=== PATIENT | male | born 1980 | race Two or more races ===

== ENCOUNTER 2017-04-03 17:58 | Emergency (ER) | payer OTHER ==
[~2017-04-03] VITALS: Ht 172.7 cm; Wt 95.3 kg
[2017-04-03 19:01] VITALS: BP 145/97
[2017-04-03] MEDS ORDERED: KEPPRA500 M4 ORAL (19:01)
[2017-04-03] MEDS ORDERED: DEPAKOTE ER250 MG ORAL (19:01)
[2017-04-03 19:03] LABS: BASOPHILS % (AUTO) 1.4 % (0.0-2.0); EOSINOPHILS % (AUTO) 3.4 % (0.0-3.0); LYMPHOCYTES % (AUTO) 20.3 % (20.0-45.0); MEAN CORPUSCULAR HEMOGLOBIN 28.6 PG (27.0-31.0); MEAN CORPUSCULAR HGB CONC 31.2 G/DL (32.0-36.0); MEAN CORPUSCULAR VOLUME 92 FL (80-99); MEAN PLATELET VOLUME 7.6 FL (6.5-10.1); MONOCYTES % (AUTO) 7.8 % (1.0-10.0); PLATELET COUNT 225 K/UL (150-450); RED BLOOD COUNT 5.08 M/UL (4.70-6.10); RED CELL DISTRIBUTION WIDTH 13.2 % (11.6-14.8); WHITE BLOOD COUNT 11.3 K/UL (4.8-10.8)
[2017-04-03 19:15] LABS: ALANINE AMINOTRANSFERASE 39 U/L (12-78); ANION GAP 9 mmol/L (5-15); ASPARTATE AMINO TRANSFERASE 26 U/L (15-37); CALCIUM 9.5 MG/DL (8.5-10.1); CARBON DIOXIDE 28 MMOL/L (21-32); CHLORIDE 104 MMOL/L (98-107); GLOMERULAR FILTRATION RATE > 60 mL/min (>60); SODIUM 141 MMOL/L (136-145); TOTAL PROTEIN 7.6 G/DL (6.4-8.2)
[2017-04-03] MEDS ORDERED: Ketorolac 30mg Inj IV ONE (19:30)
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
[2017-04-03 21:30] VITALS: BP 138/80
[2017-04-03] MEDS ORDERED: ACETAMINOPHEN500 M3 ORAL (21:36)
[2017-04-03] MEDS ORDERED: IBUPROFEN600 MG ORAL (21:36)
[2017-04-03 21:41] VITALS: BP 138/80
--- NOTE | 2017-04-04 11:02 | Diagnostic Imaging Report ---
Indication: Chest and abdominal pain. Trauma. Technique: Continuous helical transaxial imaging of the chest, abdomen and pelvis was obtained from the lung bases to the pubic symphysis during intravenous contrast administration. Multiple phases of enhancement obtained. Coronal 2-D reformats were also obtained. Study obtained in a Siemens sensation [address] Total Dose length Product (DLP): [address] Dose Index Volume (CTDIvol): 0.15, 8.11, 73, 24.46, 22.42 mGy Comparison: None Findings: The lungs are clear. There is no pneumothorax or airspace/interstitial opacities. No abnormal fluid collections are demonstrated within the chest. No adenopathy seen. Heart is unremarkable. No obvious osseous injury is identified. The liver is hypodense consistent with fatty infiltration. The size of the liver and attenuation and size of the spleen appear normal. No solid organ injury identified. There are multiple small cysts within the right kidney. Normal appendix noted. No free fluid or free air identified. Tiny left inguinal hernia containing fat demonstrated. Metallic streak artifact emanating from the right groin noted consistent with radiopaque foreign body. Metallic artifacts also noted in the area of the left shoulder. Impression: No evidence of acute injury involving the chest abdomen or pelvis. Radiopaque foreign bodies in the area of the right groin and left shoulder noted. Fatty liver incidentally demonstrated. Small cysts noted within the right kidney, incidentally demonstrated. Tiny left inguinal hernia containing fat. Dr. Robbins has communicated the preliminary results to the Emergency Department. There are no significant discrepancies. The CT scanner at [facility] is accredited by the [employer] and the scans are performed using dose optimization techniques as appropriate to a performed exam including Automatic Exposure control.
--- NOTE | 2017-04-04 11:12 | Diagnostic Imaging Report ---
Indication: Head trauma. Headache Technique: Contiguous 5 mm thick transaxial imaging of the head obtained in a Siemens Sensation [address] scanner. Soft tissue and bone windows generated. Total Dose length Product (DLP): [address] Dose Index Volume (CTDIvol): 70.38, 0.15 mGy Comparison: none Findings: The size and configuration of the cortical sulci, basal cisterns, and ventricles are within normal limits for age. There is no mass effect, midline shift, or edema identified. There is no evidence of acute hemorrhage or abnormal intra-axial or extra-axial fluid collections. The bones and soft tissues are unremarkable. Impression: No mass effect, edema or acute bleed. The CT scanner at [facility] is accredited by the [employer] and the scans are performed using dose optimization techniques as appropriate to a performed exam including Automatic Exposure control.
--- NOTE | 2017-04-04 12:56 | Diagnostic Imaging Report ---
Indication: Pain Comparison: None Findings: 3 views of the left foot were obtained. No acute fractures, malalignment, erosions or periostitis are identified. Soft tissues are unremarkable. Impression: No acute findings
--- NOTE | 2017-04-04 12:56 | Diagnostic Imaging Report ---
Indication: left ankle pain Comparison: None Findings: 3 views of the left ankle obtained. No acute fracture, malalignment, periostitis, or osteochondral defects are identified. Soft tissues are unremarkable. Impression: No acute findings
--- NOTE | 2017-04-04 12:57 | Diagnostic Imaging Report ---
Indication: Pain 3 views of the left knee were obtained. Findings: No acute fracture, malalignment, or joint effusion are identified. Joint space is relatively well-maintained. Impression: Negative for acute injury
== END 2017-04-03 21:41 | disposition home or self-care (01) ==
LOC: EDBD 17:58 → EMR 18:25
DX: S93.402A Sprain of unspecified ligament of left ankle, initial encounter (principal); S93.602A Unspecified sprain of left foot, initial encounter; S80.212A Abrasion, left knee, initial encounter; M25.552 Pain in left hip; G40.909 Epilepsy, unspecified, not intractable, without status epilepticus; T14.8XXA Other injury of unspecified body region, initial encounter; R51 Headache; K76.0 Fatty (change of) liver, not elsewhere classified; K40.90 Unilateral inguinal hernia, without obstruction or gangrene, not specified as recurrent; N28.1 Cyst of kidney, acquired; V09.9XXA Pedestrian injured in unspecified transport accident, initial encounter; Y93.55 Activity, bike riding; Y92.410 Unspecified street and highway as the place of occurrence of the external cause
CPT/HCPCS: 36415; 70450; 71260; 73562; 73610; 73630; 74177; 80053; 85025; 85610; 85730; 99284; Q9967